=== PATIENT | female | born 1995 | race Caucasian/White ===

== ENCOUNTER 2017-02-11 17:23 | Inpatient (IN) | payer MEDICAID ==
[~2017-02-11] VITALS: Ht 157.5 cm; Wt 70.8 kg
--- OUTSIDE RECORDS SUMMARY | 2017-02-11 17:28 | XMS REPORT | Continuity of Care Document ---
Demographics Preferred Language Unknown Marital Status Unknown Jain Affiliation Unknown Race Unknown Ethnic Group Unknown Author Author [facility] Address Unknown Phone Unavailable Allergies There is no data. Medications There is no data. Problems Date Dx Coded Attending Type Code Diagnosis Diagnosed By 11/10/2009 558.9 GASTROENTERITIS NONINFECTIOUS 10/08/2010 V70.3 SPORTS/SCHOOL EXAM 11/02/2010 845.00 SPRAIN/ STRAIN ANKLE 05/21/2012 610.0 BREAST CYST 05/21/2012 788.1 DYSURIA 05/21/2012 V20.2 WELL CHILD Procedures Code [place] [address] UA LONG DIP 05/21/2012 23817 Audiogram (Screening) 05/23/2012 Results There is no data. Encounters ACCT No. Visit Date/Time Discharge Status Pt. Type Provider Facility Loc./Unit Complaint [id number] 05/21/2012 14:53:00 05/21/2012 23:59:59 CLS Outpatient [id number] 12/09/2012 19:39:00 12/09/2012 21:17:00 DIS Emergency
--- NOTE | 2017-02-11 18:55 | ED GU-Female ---
General Chief Complaint: -Female Stated Complaint: VAGINAL CYST Nursing Triage Note: PT PRESENTS TO ER WITH COMPLAINT OF VAGINAL CYST/ BUMP. STATES THAT SHE WENT TO [facility] ON Sunday02/09/17. SHE STATES THERE THEY RAN MULTIPLE TESTS AND GAVE HER AN ANTIBIOTIC. SHE IS UNAWARE OF WHAT ANTIBIOTIC SHE WAS GIVEN. ALSO STATES SHE IS HAVING WHITE VAGINAL DISCHARGE, BUT DOES NOT FEEL IT IS FROM THE CYST. Nursing Sepsis Screen: No Definite Risk Source: patient, family (sister), other (boyfriend) Exam Limitations: no limitations History of Present Illness Time seen by provider: 18:55 Initial Comments 22-year-old female patient presents to the emergency department with complaints of approximately 2 weeks onset left labial swelling and pain. Patient reports contacting her primary care provider at our medical clinic and was prescribed Diflucan. Patient reports seeing the walk-in clinic at [facility] on and given 1000 mg of azithromycin. Pap smear and vaginal cultures were obtained at that time. Patient states she was scheduled with Dr. Medina tomorrow as an outpatient. Patient reports increased swelling, pain, redness, and vaginal discharge today. Does complain of chills and sweats. She is unable to sit at this time. Timing/Duration: getting worse, other (2 weeks onset) Severity/Quality: severe Location: other (left labia) Activities at Onset: none Prior Genitourinary Problems: none Sexual [place] History: less than 2 months ago, single partner Modifying Factors: Worsens With Movement, Worsens With Palpation, Worsens With Other (worse with sitting) Allergies and Home Medications Allergies Coded Allergies: No Known Drug Allergies (Unverified , 02/11/17) Constitutional: chills, diaphoresis, No fever, malaise Respiratory: no symptoms reported Cardiovascular: no symptoms reported Gastrointestinal: No abdominal pain, No constipation, No diarrhea, No nausea, No vomiting Genitourinary: see HPI, discharge, denies dysuria, denies frequency, denies flank pain, denies hematuria, denies pain Musculoskeletal: No back pain Skin: see HPI, lumps (left labia) Psychiatric/Neurological: No Symptoms Reported All Other Systemes Reviewed Negative Unless Noted: Yes (Negative excepted noted.) Past Tyvtxbh-Emcxzi-Frtsyo Hx Patient Social History Alcohol Use: Denies Use Recreational Drug Use: No Smoking Status: Never a Smoker Recent Foreign Travel: No Contact w/Someone Who Travel: No Recent Infectious Disease Expo: No Recent Hopitalizations: No Physical Abuse: No Sexual Abuse: No Seasonal Allergies Seasonal Allergies: No Surgeries History of Surgeries: No Respiratory History of Respiratory Disorde: No Cardiovascular History of Cardiac Disorders: No Neurological History of Neurological Disord: No Reproductive System Hx Reproductive Disorders: No Sexually Transmitted Disease: No HIV/AIDS: No Genitourinary History of Genitourinary Disor: No Gastrointestinal History of Gastrointestinal Di: No Musculoskeletal History of Musculoskeletal Dis: No Endocrine History of Endocrine Disorders: No HEENT History of HEENT Disorders: No Cancer History of Cancer: No Psychosocial History of Psychiatric Problem: No Suicide Risk Score: 0 Integumentary History of Skin or Integumenta: No Blood Transfusions History of Blood Disorders: No Adverse Reaction to a Blood Tr: No Reviewed Nursing Assessment Reviewed/Agree w Nursing PMH: Yes Family Medical History Significant Family History: No Pertinent Family Hx Physical Exam Vital Signs Vital Sign - Last 12Hours 02/11/17 18:16 Temp 100.0 Pulse 110 Resp 20 B/P (MAP) 126/80 (95) Pulse Ox 98 O2 Delivery Room Air Capillary Refill : Less Than 3 Seconds General Appearance: WD/WN, no apparent distress HEENT: PERRL/EOMI, pharynx normal Neck: supple, normal inspection Cardiovascular: normal peripheral pulses, regular rate, rhythm, no murmur Respiratory: lungs clear, normal breath sounds, no respiratory distress, no accessory muscle use Gastrointestinal: normal bowel sounds, non tender, soft, no organomegaly, No distended Pelvic: other (left labia swollen (approximately the size of a nectarine), erythematous, tenderness with 2 areas of ecchymosis. patient unable to tolerate formal pelvic exam due to pain.) Back: normal inspection, no CVA tenderness Extremities: no pedal edema, normal capillary refill Neurologic/Psychiatric: alert, normal mood/affect, oriented x 3 Skin: normal color, warm/dry, other (left labia swollen (approximately the size of a nectarine), erythematous, tenderness with 2 areas of ecchymosis. ) Focused Exam Evaluation Sepsis Stage: Sepsis Possible Source: Genitouriary Lactate Level Laboratory Tests 02/11/17 19:30: Lactic Acid Level 1.25 Time of Focused Exam: 19:30 Respiratory: Lungs Clear, Normal Breath Sounds, No Accessory Muscle Use, No Respiratory Distress Cardiovascular: Regular Rate, Rhythm, No Murmur, Normal Peripheral Pulses Capillary Refill: Less Than 3 Seconds Peripheral Pulses: 2+ Dorsalis Pedis (R), 2+ Left Dors-Pedis (L), 2+ Radial Pulses (R), 2+ Radial Pulses (L) Skin: normal color, warm/dry, No rash, No ulcerations, other (left labia swollen (approximately the size of a nectarine), erythematous, tenderness with 2 areas of ecchymosis. ) Lactic Acid Level Progress/Results/Core Measures Suspected Sepsis Recent Fever Within 48 Hours: No Infection Criteria Present: None New/Unexplained Altered Menta: No Sepsis Screen: No Definite Risk Sepsis Diagnosis: SIRS Temperature:98.0 Pulse: 110 Respiratory Rate: 20 Laboratory Tests 02/11/17 19:30: White Blood Count 13.6H Blood Pressure 126 /80 Mean: 95 Laboratory Tests 02/11/17 19:30: Lactic Acid Level 1.25 Laboratory Tests 02/11/17 19:30: Creatinine 0.82, Platelet Count 363, Total Bilirubin 0.3 02/11/17 20:36: INR Comment 1.1 Results/Orders Lab Results Laboratory Tests Test 02/11/17 19:30 02/11/17 20:36 02/11/17 20:44 Range/Units White Blood Count 13.6 H 4.3-11.0 10^3/uL Red Blood Count 4.71 4.35-5.85 10^6/uL Hemoglobin 14.4 11.5-16.0 G/DL Hematocrit 42 35-52 % Mean Corpuscular Volume 89 80-99 FL Mean Corpuscular Hemoglobin 31 25-34 PG Mean Corpuscular Hemoglobin Concent 34 32-36 G/DL Red Cell Distribution Width 11.5 10.0-14.5 % Platelet Count 363 130-400 10^3/uL Mean Platelet Volume 9.0 7.4-10.4 FL Neutrophils (%) (Auto) 77 H 42-75 % Lymphocytes (%) (Auto) 15 12-44 % Monocytes (%) (Auto) 8 0-12 % Eosinophils (%) (Auto) 0 0-10 % Basophils (%) (Auto) 0 0-10 % Neutrophils # (Auto) 10.5 H 1.8-7.8 X 10^3 Lymphocytes # (Auto) 2.0 1.0-4.0 X 10^3 Monocytes # (Auto) 1.0 0.0-1.0 X 10^3 Eosinophils # (Auto) 0.0 0.0-0.3 10^3/uL Basophils # (Auto) 0.0 0.0-0.1 10^3/uL Sodium Level 142 135-145 MMOL/L Potassium Level 3.5 L 3.6-5.0 MMOL/L Chloride Level 102 98-107 MMOL/L Carbon Dioxide Level 26 21-32 MMOL/L Anion Gap 14 5-14 MMOL/L Blood Urea Nitrogen 9 7-18 MG/DL Creatinine 0.82 0.60-1.30 MG/DL Estimat Glomerular Filtration Rate > 60 BUN/Creatinine Ratio 11 Glucose Level 92 70-105 MG/DL Lactic Acid Level 1.25 0.50-2.00 MMOL/L Calcium Level 10.0 8.5-10.1 MG/DL Total Bilirubin 0.3 0.1-1.0 MG/DL Aspartate Amino Transf (AST/SGOT) 11 5-34 U/L Alanine Aminotransferase (ALT/SGPT) 13 0-55 U/L Alkaline Phosphatase 90 40-136 U/L C-Reactive Protein High Sensitivity 3.08 H 0.00-0.50 MG/DL Total Protein 8.3 H 6.4-8.2 GM/DL Albumin 4.2 3.2-4.5 GM/DL Prothrombin Time 14.5 12.2-14.7 SEC INR Comment 1.1 0.8-1.4 Activated Partial Thromboplast Time 27 24-35 SEC Urine Color YELLOW Urine Clarity SLIGHTLY CLOUDY Urine pH 7 5-9 Urine Specific [place] 1.010 L 1.016-1.022 Urine Protein NEGATIVE NEGATIVE Urine Glucose (UA) NEGATIVE NEGATIVE Urine Ketones NEGATIVE NEGATIVE Urine Nitrite NEGATIVE NEGATIVE Urine Bilirubin NEGATIVE NEGATIVE Urine Urobilinogen NORMAL NORMAL MG/DL Urine Leukocyte Esterase 1+ H NEGATIVE Urine RBC (Auto) 1+ H NEGATIVE Urine RBC NONE /HPF Urine WBC 2-5 /HPF Urine Squamous Epithelial Cells >50 H /HPF Urine Crystals NONE /LPF Urine Bacteria FEW H /HPF Urine Casts NONE /LPF Urine Mucus NEGATIVE /LPF Urine Culture Indicated NO My Orders Orders - ISELA RUSSO Morphine Injection (Morphine Injection (02/11/17 19:07) Cbc With Automated Diff (02/11/17 19:16) Comprehensive Metabolic Panel (02/11/17 19:16) Hs C Reactive Protein (02/11/17 19:16) Lactic Acid Analyzer (02/11/17 19:16) Saline Lock/Iv-Start (02/11/17 19:16) Morphine Injection (Morphine Injection (02/11/17 19:16) Ns Iv 1000 Ml (Sodium Chloride 0.9%) (02/11/17 19:16) Blood Culture (02/11/17 20:06) Wound Culture (02/11/17 20:06) Protime With Inr (02/11/17 20:15) Partial Thromboplastin Time (02/11/17 20:15) Levofloxacin 750 Mg/150 Ml Iv (Levaquin (02/11/17 20:15) Vital Signs Adult Sepsis Patie Q1H (02/11/17 20:15) Remove Rings In Anticipation O (02/11/17 20:15) Ketorolac Injection (Toradol Injection) (02/11/17 20:15) Ns Iv 1000 Ml (Sodium Chloride 0.9%) (02/11/17 20:15) Ua Culture If Indicated (02/11/17 20:24) Urine Bedside (02/11/17 20:37) Medications Given in ED Current Medications Medications Dose Ordered Sig/Afsaneh Route Start Time Stop Time Status Last Admin Dose Admin Levofloxacin/ Dextrose 750 mg ONCE ONCE IV 02/11/17 20:15 02/11/17 20:17 DC 02/11/17 20:26 750 MG Sodium Chloride 1,000 ml @ 0 mls/hr Q0M ONCE IV 02/11/17 19:16 02/11/17 19:18 DC 02/11/17 19:41 1,000 MLS/HR Sodium Chloride 1,000 ml @ 0 mls/hr Q0M ONCE IV 02/11/17 20:15 02/11/17 20:17 DC 02/11/17 20:25 1,000 MLS/HR Vital Signs/I&O Vital Sign - Last 12Hours 02/11/17 02/11/17 02/11/17 18:16 22:42 23:42 Temp 100.0 99.0 97.0 Pulse 110 100 95 Resp 20 20 18 B/P (MAP) 126/80 (95) 119/66 (83) Pulse Ox 98 99 99 O2 Delivery Room Air Room Air Room Air Intake and Output 02/12/17 00:00 Intake Total 1000 ml Balance 1000 ml Capillary Refill : Less Than 3 Seconds Blood Pressure Mean: 95 Departure Communication (Admissions) Time/Spoke to Admitting Phy: 20:[address] ordoñez graciously accepts patient to his [facility] service for IV antibiotics and IVF. Progress Notes patient noted to have a WBC count of 13.6 with a temp of 100.0 which meets criteria for sepsis with known infection of the left labia. all laboratory findings and plan for admission discussed with the patient. Patient verbalizes understanding and agrees with plan for admit. Impression Impression: Primary Impression: Sepsis Qualified Codes: A41.9 - Sepsis, unspecified organism Additional Impression: Left genital labial abscess Disposition: ADMITTED INPATIENT Condition: Stable Admissions Decision to Admit Reason: Admit from ER (General) Decision to Admit/Date: Feb 11, 2017 Time/Decision to Admit Time: 20:25 Departure-Patient Inst. Referrals: [facility] [place] Primary Care Physician Scripts No Active Prescriptions or Reported Meds ISELA RUSSO Feb 11, 2017 18:55
[2017-02-11] MEDS ORDERED: morphine INJ 10 MG/ML 1ML (SYR OR VIAL) IM STA (19:07)
[2017-02-11] MEDS ORDERED: morphine INJ 10 MG/ML 1ML (SYR OR VIAL) IVP STA (19:16)
[2017-02-11] MEDS ORDERED: NS IV 1000 ML 1,000 ML IV ONE ×2 (19:16→20:15)
[2017-02-11 19:44] LABS: BASOPHILS % (AUTO) 0 % (0-10); EOSINOPHILS % (AUTO) 0 % (0-10); LYMPHOCYTES % (AUTO) 15 % (12-44); MEAN CORPUSCULAR HEMOGLOBIN 31 PG (25-34); MEAN CORPUSCULAR HGB CONC 34 G/DL (32-36); MEAN CORPUSCULAR VOLUME 89 FL (80-99); MONOCYTES % (AUTO) 8 % (0-12); NEUTROPHILS # (AUTO) 10.5 X 10^3 (1.8-7.8); NEUTROPHILS % (AUTO) 77 % (42-75); PLATELET COUNT 363 10^3/uL (130-400); RED BLOOD COUNT 4.71 10^6/uL (4.35-5.85); RED CELL DISTRIBUTION WIDTH 11.5 % (10.0-14.5); WHITE BLOOD COUNT 13.6 10^3/uL (4.3-11.0)
[2017-02-11 20:07] LABS: ALANINE AMINOTRANSFERASE 13 U/L (0-55); ALBUMIN 4.2 GM/DL (3.2-4.5); ANION GAP 14 MMOL/L (5-14); ASPARTATE AMINO TRANSFERASE 11 U/L (5-34); BILIRUBIN,TOTAL 0.3 MG/DL (0.1-1.0); BLOOD UREA NITROGEN 9 MG/DL (7-18); BUN/CREATININE RATIO 11; CARBON DIOXIDE 26 MMOL/L (21-32); CHLORIDE 102 MMOL/L (98-107); CREATININE SERUM 0.82 MG/DL (0.60-1.30); GFR ESTIMATED > 60; GLUCOSE 92 MG/DL (70-105); POTASSIUM 3.5 MMOL/L (3.6-5.0); SODIUM 142 MMOL/L (135-145); TOTAL PROTEIN 8.3 GM/DL (6.4-8.2); hs C REACTIVE PROTEIN 3.08 MG/DL (0.00-0.50)
[2017-02-11] MEDS ORDERED: LEVOFLOXACIN IV 750 MG/150 ML (LEVAQUIN) BAG IV ONE (20:15)
[2017-02-11] MEDS ORDERED: KETOROLAC 30 MG/ML VIAL IVP STA (20:15)
[2017-02-11 20:53] LABS: INR 1.1 (0.8-1.4); PROTHROMBIN TIME PATIENT 14.5 SEC (12.2-14.7)
[2017-02-11 20:53] LABS: BILIRUBIN,URINE NEGATIVE (NEGATIVE); KETONES,URINE NEGATIVE (NEGATIVE); LEUKOCYTE ESTERASE ,URINE 1+ (NEGATIVE); NITRITE,URINE NEGATIVE (NEGATIVE); PH,URINE 7 (5-9); PROTEIN,URINE NEGATIVE (NEGATIVE); UROBILINOGEN,URINE NORMAL (NORMAL)
[2017-02-11 20:59] LABS: SQUAMOUS EPITHELIAL CELL,UR >50 /HPF
--- OUTSIDE RECORDS SUMMARY | 2017-02-11 22:02 | XMS REPORT | Continuity of Care Document ---
Demographics Preferred Language Unknown Marital Status Unknown Sikh Affiliation Unknown Race Unknown Ethnic Group Unknown Author Author [facility] Address Unknown Phone Unavailable Allergies There is no data. Medications There is no data. Problems Date Dx Coded Attending Type Code Diagnosis Diagnosed By 11/10/2009 558.9 GASTROENTERITIS NONINFECTIOUS 10/08/2010 V70.3 SPORTS/SCHOOL EXAM 11/02/2010 845.00 SPRAIN/ STRAIN ANKLE 05/21/2012 610.0 BREAST CYST 05/21/2012 788.1 DYSURIA 05/21/2012 V20.2 WELL CHILD Procedures Code Description [place] [address] UA LONG DIP 05/21/2012 97006 Audiogram (Screening) 05/23/2012 Results There is no data. Encounters ACCT No. Visit Date/Time Discharge Status Pt. Type Provider Facility Loc./Unit Complaint [id number] 05/21/2012 14:53:00 05/21/2012 23:59:59 CLS Outpatient [id number] 12/09/2012 19:39:00 12/09/2012 21:17:00 DIS Emergency
[2017-02-11] MEDS ORDERED: morphine INJ 4 MG/ML 1 ML (VIAL/SYRINGE) IVP PRN (22:45)
[2017-02-11] MEDS ORDERED: ACETAMINOPHEN 500 MG TAB (TYLENOL) PO PRN (22:45)
[2017-02-11] MEDS ORDERED: metroNIDAZOLE 500MG/100ML IVPB 100 ML ONE (23:03)
[2017-02-11] MEDS ORDERED: NS IV 1000 ML 1,000 ML ONE (23:03)
[2017-02-11] MEDS: metroNIDAZOLE 500MG/100ML IVPB 100 ML IV SCH (23:12)
[2017-02-11] MEDS: NS IV 1000 ML 1,000 ML IV SCH (23:12)
[2017-02-11 23:42] VITALS: BP 119/66
[2017-02-12 04:05] VITALS: BP 115/69
[2017-02-12] MEDS: KETOROLAC 30 MG/ML VIAL IVP PRN ×3 (04:05→20:36)
[2017-02-12] MEDS: NS IV 1000 ML 1,000 ML IV SCH (04:08)
[2017-02-12 06:11] LABS: BASOPHILS % (AUTO) 0 % (0-10); EOSINOPHILS # (AUTO) 0.1 10^3/uL (0.0-0.3); EOSINOPHILS % (AUTO) 1 % (0-10); LYMPHOCYTES # (AUTO) 2.3 X 10^3 (1.0-4.0); LYMPHOCYTES % (AUTO) 20 % (12-44); MEAN CORPUSCULAR HEMOGLOBIN 31 PG (25-34); MEAN CORPUSCULAR HGB CONC 34 G/DL (32-36); MEAN CORPUSCULAR VOLUME 92 FL (80-99); MEAN PLATELET VOLUME 8.9 FL (7.4-10.4); MONOCYTES # (AUTO) 1.2 X 10^3 (0.0-1.0); MONOCYTES % (AUTO) 10 % (0-12); NEUTROPHILS % (AUTO) 69 % (42-75); PLATELET COUNT 285 10^3/uL (130-400); RED BLOOD COUNT 3.62 10^6/uL (4.35-5.85); RED CELL DISTRIBUTION WIDTH 11.5 % (10.0-14.5); WHITE BLOOD COUNT 11.6 10^3/uL (4.3-11.0)
[2017-02-12 06:28] LABS: ALANINE AMINOTRANSFERASE 11 U/L (0-55); ALBUMIN 2.9 GM/DL (3.2-4.5); ANION GAP 6 MMOL/L (5-14); ASPARTATE AMINO TRANSFERASE 9 U/L (5-34); BILIRUBIN,TOTAL 0.2 MG/DL (0.1-1.0); BLOOD UREA NITROGEN 11 MG/DL (7-18); BUN/CREATININE RATIO 15; CARBON DIOXIDE 23 MMOL/L (21-32); CHLORIDE 112 MMOL/L (98-107); CREATININE SERUM 0.72 MG/DL (0.60-1.30); GFR ESTIMATED > 60; GLUCOSE 121 MG/DL (70-105); POTASSIUM 3.9 MMOL/L (3.6-5.0); SODIUM 141 MMOL/L (135-145); TOTAL PROTEIN 5.6 GM/DL (6.4-8.2); hs C REACTIVE PROTEIN 1.92 MG/DL (0.00-0.50)
[2017-02-12] MEDS ORDERED: D5 LR IV SOLUTION 1,000 ML IV ONE (08:07)
[2017-02-12 08:10] VITALS: BP 124/74
[2017-02-12] MEDS: metroNIDAZOLE 500MG/100ML IVPB 100 ML IV SCH ×2 (08:16→18:47)
[2017-02-12] MEDS: D5 LR IV SOLUTION 1,000 ML IV SCH ×2 (08:17→20:33)
--- NOTE | 2017-02-12 08:31 | History & Physical-OB/GYN ---
History of Present Illness History of Present Illness Reason for visit/HPI Left labial abscess. This patient reports having left labial swelling which has gotten substantially worse in the past 2-3 days. Sought care at [facility] where she was given, azithromycin and tested for STDs. She tried treatment with antifungal without any improvement and began running temp, and pain became much worse so she present to the ER. Date of Admission Feb 11, 2017 at 20:45 Date Seen by Provider: Feb 12, 2017 Time Seen by Provider: 08:15 I consulted on this patient on 02/12/17 08:25 Attending Physician Everton Weinberg DO Admitting Physician No,Local Physician Consult Allergies and Home Medications Allergies Coded Allergies: No Known Drug Allergies (Unverified , 02/11/17) Past Rvgayoe-Ppjzlr-Ofbyyp Hx Patient Social History Marrital Status: single Number of Children: 0 Number of living children: 0 Alcohol Use: Denies Use Recreational Drug Use: No Smoking Status: Never a Smoker Physical Abuse Screen: No Sexual Abuse: No Recent Foreign Travel: No Contact w/other who traveled: No Recent Hopitalizations: No Recent Infectious Disease Expo: No Seasonal Allergies Seasonal Allergies: No Surgeries No Respiratory No Cardiovascular No Neurological No Reproductive System Hx Reproductive Disorders: No Sexually Transmitted Disease: No HIV/AIDS: No Genitourinary No Gastrointestinal No Musculoskeletal No Endocrine History of Endocrine Disorders: No HEENT History of HEENT Disorders: No Cancer No Psychosocial History of Psychiatric Problem: No Integumentary History of Skin or Integumenta: No Blood Transfusions History of Blood Disorders: No Adverse Reaction to a Blood Tr: No Reviewed Nursing Assessment Reviewed/Agree w Nursing PMH: Yes Family Medical History Significant Family History: No Pertinent Family Hx Constitutional: see HPI EENTM: see HPI Respiratory: see HPI Cardiovascular: see HPI Gastrointestinal: see HPI Genitourinary: see HPI : No Musculoskeletal: see HPI Skin: see HPI Psychiatric/Neurological: See HPI All Other Systems Reviewed Negative Unless Noted: Yes Physical Exam Physical Exam Vital Signs Vital Signs Date Time Temp Pulse Resp B/P (MAP) Pulse Ox O2 Delivery O2 Flow Rate FiO2 02/12/17 04:05 98.0 77 17 115/69 (84) 100 Room Air 02/11/17 23:42 97.0 95 18 119/66 (83) 99 Room Air 02/11/17 22:42 99.0 100 20 99 Room Air 02/11/17 18:16 100.0 110 20 126/80 (95) 98 Room Air I & O 02/12/17 07:00 Intake Total 3150 ml Balance 3150 ml Capillary Refill : Less Than 3 Seconds Labs Laboratory Tests 02/11/17 19:30: White Blood Count 13.6H, Red Blood Count 4.71, Hemoglobin 14.4, Hematocrit 42, Mean Corpuscular Volume 89, Mean Corpuscular Hemoglobin 31, Mean Corpuscular Hemoglobin Concent 34, Red Cell Distribution Width 11.5, Platelet Count 363, Mean Platelet Volume 9.0, Neutrophils (%) (Auto) 77H, Lymphocytes (%) (Auto) 15 , Monocytes (%) (Auto) 8, Eosinophils (%) (Auto) 0, Basophils (%) (Auto) 0, Neutrophils # (Auto) 10.5H, Lymphocytes # (Auto) 2.0, Monocytes # (Auto) 1.0, Eosinophils # (Auto) 0.0, Basophils # (Auto) 0.0, Sodium Level 142, Potassium Level 3.5L, Chloride Level 102, Carbon Dioxide Level 26, Anion Gap 14, Blood Urea Nitrogen 9, Creatinine 0.82, Estimat Glomerular Filtration Rate > 60, BUN/ Creatinine Ratio 11, Glucose Level 92, Lactic Acid Level 1.25, Calcium Level 10.0, Total Bilirubin 0.3, Aspartate Amino Transf (AST/SGOT) 11, Alanine Aminotransferase (ALT/SGPT) 13, Alkaline Phosphatase 90, C-Reactive Protein High Sensitivity 3.08H, Total Protein 8.3H, Albumin 4.2 02/11/17 20:36: Prothrombin Time 14.5, INR Comment 1.1, Activated Partial Thromboplast Time 27 02/11/17 20:44: Urine Color YELLOW, Urine Clarity SLIGHTLY CLOUDY, Urine pH 7, Urine Specific [place] 1.010L, Urine Protein NEGATIVE, Urine Glucose (UA) NEGATIVE, Urine Ketones NEGATIVE, Urine Nitrite NEGATIVE, Urine Bilirubin NEGATIVE, Urine Urobilinogen NORMAL, Urine Leukocyte Esterase 1+H, Urine RBC (Auto) 1+H, Urine RBC NONE, Urine WBC 2-5, Urine Squamous Epithelial Cells >50H, Urine Crystals NONE, Urine Bacteria FEWH, Urine Casts NONE, Urine Mucus NEGATIVE, Urine Culture Indicated NO 02/12/17 06:02: White Blood Count 11.6H, Red Blood Count 3.62L, Hemoglobin 11.2#L, Hematocrit 33L, Mean Corpuscular Volume 92, Mean Corpuscular Hemoglobin 31, Mean Corpuscular Hemoglobin Concent 34, Red Cell Distribution Width 11.5, Platelet Count 285, Mean Platelet Volume 8.9, Neutrophils (%) (Auto) 69, Lymphocytes (%) (Auto) 20, Monocytes (%) (Auto) 10, Eosinophils (%) (Auto) 1, Basophils (%) ( Auto) 0, Neutrophils # (Auto) 8.0H, Lymphocytes # (Auto) 2.3, Monocytes # (Auto ) 1.2H, Eosinophils # (Auto) 0.1, Basophils # (Auto) 0.0, Sodium Level 141, Potassium Level 3.9, Chloride Level 112#H, Carbon Dioxide Level 23, Anion Gap 6 , Blood Urea Nitrogen 11, Creatinine 0.72, Estimat Glomerular Filtration Rate > 60, BUN/Creatinine Ratio 15, Glucose Level 121H, Lactic Acid Level 0.77, Calcium Level 8.0L, Total Bilirubin 0.2, Aspartate Amino Transf (AST/SGOT) 9, Alanine Aminotransferase (ALT/SGPT) 11, Alkaline Phosphatase 68, C-Reactive Protein High Sensitivity 1.92H, Total Protein 5.6L, Albumin 2.9L General Appearance: Anxious, Mild Distress Respiratory: Lungs Clear Cardiovascular: Regular Rate, Rhythm Abdominal: normal bowel sounds Gynecology/General: Other (3x4 cm labial lesion, there is an area of erythema limited to the abscess, no surrounding evidence of cellulitis) Labia: Left, Abscess Labia Mass: soft, tender Pelvic Exam: deferred (could not tolerate) Assessment/Plan Assessment and Plan Diagnosis: 22 yo G0 with Left labial abscess Failed conservative treatment P: Plan of care discussed with the patient I and D of left labial abscess, I discussed with her the details of the procedure, and possibility of postoperative packing and wound care as well as prolonged course of antibiotics. Problems: Admission Diagnosis 22 yo G0 with Left labial abscess Failed conservative treatment Clinical Quality Measures DVT/VTE Risk/Contraindication: Risk Factor Score Per Nursin RFS Level Per Nursing on Admit: 1=Low/No VTE PPX EVERTON WEINBERG DO Feb 12, 2017 08:31
[2017-02-12] MEDS: HYDROmorphone (DILAUDID) 2 MG/ML VIAL IVP PRN ×2 (08:48→18:47)
[2017-02-12] MEDS: FAMOTIDINE 20MG/2ML IV (PEPCID) IVP SCH ×2 (09:26→20:34)
[2017-02-12] MEDS: DOCUSATE SODIUM 100 MG (COLACE) CAP PO SCH ×2 (09:27→20:40)
[2017-02-12] MEDS ORDERED: INFLUENZA TRIvalent 2017-2018 0.5 ML/45 MCG SYR IM ONE (10:00)
[2017-02-12] MEDS: ONDANSETRON 4 MG/2 ML (SDV) Z0FRAN IVP PRN ×2 (10:28→15:08)
[2017-02-12 12:09] VITALS: BP 117/72
[2017-02-12] MEDS ORDERED: BUPIVACAINE 0.25% 30 ML (SENSORCAINE) VIAL ONE (12:10)
[2017-02-12] MEDS ORDERED: LACTATED RINGERS 1,000 ML IV ONE (12:11)
[2017-02-12] MEDS ORDERED: DEXAMETHASONE 10 MG/ML (DECADRON) 1 ML VIAL ONE (12:16)
[2017-02-12] MEDS ORDERED: SEVOFLURANE (ULTANE) 15 ML INHAL SOLN ONE ×3 (12:16→12:54)
[2017-02-12] MEDS ORDERED: MIDAZOLAM 2 MG/2 ML (VERSED) VIAL ONE (12:16)
[2017-02-12] MEDS ORDERED: LIDOCAINE PF 2% 5 ML (XYLOCAINE) VIAL ONE (12:16)
[2017-02-12] MEDS ORDERED: ONDANSETRON 4 MG/2 ML (SDV) Z0FRAN ONE (12:16)
[2017-02-12] MEDS ORDERED: fentaNYL INJECTION 100 MCG/2 ML AMP ONE ×2 (12:16→12:51)
[2017-02-12] MEDS ORDERED: proPOfol 200 MG/20 ML (DIPRIVAN) VIAL IV ONE (12:16)
[2017-02-12] MEDS ORDERED: GENTAMICIN 40 MG/ML 2 ML INJ SDV IR ONE (13:00)
[2017-02-12] MEDS ORDERED: BUPIVACAINE 0.25% 30 ML (SENSORCAINE) VIAL INJ ONE (13:00)
[2017-02-12] MEDS ORDERED: ONDANSETRON 4 MG/2 ML (SDV) Z0FRAN IVP PRN (13:15)
[2017-02-12] MEDS: morphine INJ 10 MG/ML 1ML (SYR OR VIAL) IVP PRN ×2 (13:32→13:39)
[2017-02-12 14:05] VITALS: BP 119/72
[2017-02-12 16:28] VITALS: BP 121/77
[2017-02-12] MEDS ORDERED: PROMETHAZINE INJ 25 MG/ML (PHENERGAN) AMP IVP PRN (18:45)
[2017-02-12] MEDS ORDERED: LEVOFLOXACIN 750 MG/150 ML IV 150 ML IV SCH (20:00)
--- NOTE | 2017-02-12 20:15 | OPERATIVE REPORT ---
DATE OF SERVICE: PREOPERATIVE DIAGNOSIS: 22-year-old female with left labial abscess. POSTOPERATIVE DIAGNOSIS: 22-year-old female with left labial abscess. PROCEDURE: Incision and drainage of left labial abscess. SURGEON: Dr. Juan José Magallon. ANESTHESIA: LMA. ESTIMATED BLOOD LOSS: Minimal. URINE OUTPUT: 500 mL drained by indwelling catheter placement at the end of the procedure. FLUIDS: 4000 mL lactate Ringer's solution. FINDINGS: A purulent exudate filled abscess of the left labia approximately 5 to 6 cm in length from front to back and approximately 3 to 4 cm wide. The dorsal margin of this extends all the way to the edge of the buttocks. The ventral margin stops just proximal to the anterior fourchette. There are two openings evident upon prep and there is a copious amount of purulent exudate expressed. SPECIMEN SENT: Abscess cultures. INDICATIONS FOR PROCEDURE: This 22-year-old female was admitted from the Emergency Department last night with a low grade temperature as well as a mildly elevated white count of 14. She reported dealing with this area on her vulva for the past two to three weeks, underwent 1000 mg of azithromycin treatment for possible STD at [facility] as well as attempted several trials of over the counter antifungals all without resolution and actually worsening of her symptoms. This morning, upon evaluation, the vulva is as described in my findings above. I discussed with the patient conservative management has failed. At this point, we will proceed with operative incision and drainage. The procedure was detailed with the patient including risk and risk of anesthesia. After all of her questions were answered, consent is obtained. The patient was taken to the operating room. OPERATIVE REPORT IN DETAIL: Once in the operating room, LMA anesthesia was found to be adequate. She was placed in the dorsal lithotomy position, prepped and draped in normal sterile fashion. The more medial opening of the wound opens up and begins draining upon prepping the patient, I go ahead and incised the margins of the necrotic area of this opening and resected using Metzenbaum scissors. There is another necrotic area on the surface of the skin that is incised as well. At first, I am suspicious that this is a separate pocket of fluid and abscess; however, upon opening, it is connecting and there is a fenestration of the labia. I clear out all extent of the abscess exploring all extent of the abscess and proceeded with copiously irrigating the abscess defect using gentamicin 80 mg in 1000 mL of normal saline. Approximately 800 mL of saline of this concentration is used to irrigate, after which there was no active bleeding noted from any my dissection planes. I then packed the defect using quarter inch iodoform. Tails were left out of both incisional openings. A Underwood catheter is placed. The patient tolerated the procedure well, sent to recovery area in stable condition 750mg of Levaquin, 500 mg of Flagyl are being given to the patient since admission, she has received one dose of Levaquin and three doses of Flagyl at this point. Job ID: [id number] DocumentID: [id number] Dictated Date: 02/12/2017 13:18:13 Family Medicine Chair Date: 02/12/2017 20:15:04 Dictated By: DO JESSICA AMOR
[2017-02-12 20:40] VITALS: BP 96/55
[2017-02-13 00:48] VITALS: BP 95/53
[2017-02-13] MEDS: HYDROcodone/APAP 5 MG/325 MG (LORTAB) TAB PO PRN ×2 (00:48→04:58)
[2017-02-13] MEDS: KETOROLAC 30 MG/ML VIAL IVP PRN (02:41)
[2017-02-13] MEDS: metroNIDAZOLE 500MG/100ML IVPB 100 ML IV SCH (02:41)
[2017-02-13 04:58] VITALS: BP 107/63
[2017-02-13] MEDS: D5 LR IV SOLUTION 1,000 ML IV SCH (06:56)
[2017-02-13 08:00] VITALS: BP 100/61
[2017-02-13] MEDS ORDERED: DOCU-143 PO (08:28)
[2017-02-13] MEDS ORDERED: METR500T PO (08:28)
[2017-02-13] MEDS ORDERED: IBUP-1773 PO (08:28)
[2017-02-13] MEDS ORDERED: LEVO500T2 PO (08:28)
[2017-02-13] MEDS ORDERED: HYDR-757 PO (08:28)
--- NOTE | 2017-02-13 08:29 | Discharge Inst-Women's Service ---
Discharge Inst-Women's Serv Depart Medication/Instructions New, Converted or Re-Newed RX: RX on Chart Consults/Follow Up Additional Follow Up: Yes Orders/Referrals DR. Magallon on Activity Activity: Activity as Tolerated Driving Instructions: No Driving for 1 Week NO SMOKING: NO SMOKING Nothing Inside Vagina: No Douching, No [place], No Tampons Diet Discharge Diet: No Restrictions Symptoms to Report to : Bleeding Excessive, Pain Increased, Fever Over 101 Degrees F, Vaginal Bleeding Increase, Questions/Concerns For Any Problems or Questions: Contact Your Physician Skin/Wound Care Infection Signs and Symptoms: Increased Redness, Increased Swelling, Temperature Above 101 F Bathing Instructions: EVERTON Oneill DO Feb 13, 2017 08:29
[2017-02-13] MEDS ORDERED: IBUPROFEN 600 MG (MOTRIN) TAB PO PRN (08:30)
--- NOTE | 2017-02-13 08:32 | Progress Note-Standard ---
Standard Progress Note Progress Notes/Assess & Plan Date Seen by Provider: Feb 13, 2017 Time Seen by Provider: 08:30 Progress/Assessment & Plan Patient reports feeling much better yesterday afternoon, and this AM. Reports expected discomfort, but is now ambulating and voiding freely since catheter was removed. Vital Sign - Last 24 Hours 02/12/17 02/12/17 02/12/17 02/12/17 12:09 14:05 16:28 20:40 Temp 98.3 98.1 97.9 97.7 Pulse 79 82 77 81 Resp 18 18 18 18 B/P (MAP) 117/72 (87) 119/72 (88) 121/77 (92) 96/55 (69) Pulse Ox 100 100 100 97 O2 Delivery Room Air Room Air Room Air Room Air 02/13/17 02/13/17 00:48 04:58 Temp 97.2 97.5 Pulse 85 71 Resp 18 B/P (MAP) 95/53 (67) 107/63 (78) Pulse Ox 99 99 O2 Delivery Room Air Room Air Intake and Output 02/12/17 02/12/17 02/13/17 15:00 23:00 07:00 Intake Total 1300 ml 1300 ml Output Total 560 ml 1350 ml 1300 ml Balance 740 ml -1350 ml 0 ml Packing out of wound with bloody discharge noted. Erythema and swelling has significantly gone down Diagnosis: POD 1 I and D labial abscess P: DC today with 10 antibiotic course of levaquin and flagyl Follow up in my office on for packing change Precautions given to patient SULTANAEVERTON Alex ZAVALA Feb 13, 2017 08:32
[2017-02-13] MEDS ORDERED: INFLUENZA TRIvalent 2017-2018 0.5 ML/45 MCG SYR IM ONE (08:44)
[2017-02-13] MEDS: DOCUSATE SODIUM 100 MG (COLACE) CAP PO SCH (08:50)
== END 2017-02-13 09:20 | disposition home or self-care (01) | DRG 747 ==
LOC: EDUNIT# 17:23 → ER 17:25 → WS 20:45
PROVIDERS: ADMIT Obstetrics & Gynecology; ATTEND Obstetrics & Gynecology
PROC: 0H99XZX Drainage of Perineum Skin, External Approach, Diagnostic (ICD-10-PCS; 2017-02-12)
PROC: 0U9MXZX Drainage of Vulva, External Approach, Diagnostic (ICD-10-PCS; principal; 2017-02-12 12:28)
DX: N76.4 Abscess of vulva (principal); Z23 Encounter for immunization
CPT/HCPCS: 36415; 80053; 81000; 83605; 84703; 85025; 85610; 85730; 86141; 87040; 87070; 87075; 87077; 87081; 87186; 87205; 96361; 96374; 96375

== ENCOUNTER 2019-09-10 06:36 | Day surgery (SDC) | payer MEDICAID ==
[~2019-09-10] VITALS: Ht 160 cm; Wt 61.4 kg
[2019-09-10] VITALS (10 sets, daily range): BP systolic 107–115; BP diastolic 65–76
[~2019-09-10 06:36] MED LIST: DOCU-143 PO; HYDR-4226 PO; IBUP-1773 PO; LEVO500T2 PO; METR500T PO
--- OUTSIDE RECORDS SUMMARY | 2019-09-10 06:39 | XMS REPORT ---
Author Author Larissa COVARRUBIAS [facility] Address [address] [place] [address] Care Team Providers Care High Pressure Kettle Operator Name Role Phone KELSEA COVARRUBIAS Unavailable PROBLEMS Type Condition ICD9-CM Code EIQ70-UA Code Onset Dates Condition S tatus SNOMED Code Problem Swelling of labia N94.89 Active 28 1137727 Problem Solitary cyst of breast 610.0 Active 672908174 Problem Dysuria 788.1 Active 24425292 Problem Routine infant or child health check V20.2 Active [id number] ALLERGIES No Known Allergies ENCOUNTERS Encounter Location Date Diagnosis [facility] [id number] [place] [phone] Jan, [facility] [id number] [place] [phone] Jan, Pelvic pain R10.2 ; Dysuria R30.0 and Swelling of labia N94.89 [facility] [place] [id number] [place] [phone] Apr, [place] [id number] [place] [phone] Sep, [place] [id number] [place] [phone] Oct, IMMUNIZATIONS Vaccine Route Administration Date Status ROCEPHIN 1 GM (IM) IM Intramuscular Feb 09, 2017 Administered SOCIAL HISTORY Never Assessed REASON FOR VISIT pt had a yeast infection a week ago according to pt...symptoms are getting worse . vaginal itching, vaginal burning, white vaginal discharge, dysuria. all been g oing on for a week. kbednarhans, last menstural period was 3 weeks ago. wants STD testing., rocephin given at 1055. pt to waiting room and will wait 15 minutes. if no s/s of distress or reaction ...pt will be discharged. report given to toby garcia rn. PLAN OF CARE Activity Details Follow Up 1 Week Reason: VITAL SIGNS Height 63.75 in 2017-02-09 Weight 156.6 lbs 2017-02-09 Temperature 98.0 degrees Fahrenheit 2017-02-09 Heart Rate 80 bpm 2017-02-09 Respiratory Rate 20 2017-02-09 BMI 27.09 kg/m2 2017-02-09 Blood pressure systolic 104 mmHg 2017-02-09 Blood pressure diastolic 68 mmHg 2017-02-09 MEDICATIONS Medication Instructions Dosage Frequency Start Date End Date Duration S tatus Azithromycin 500 MG Orally once 2 tablets Jan,Jan, 017 1 days Active RESULTS No Results PROCEDURES Procedure Date Ordered Result Body Site No Charge Feb 09, 2017 [facility] Feb 09, 2017 THER/PROPH/DIAG INJ, SC/IM Feb 09, 2017 URINALYSIS, AUTO, W/O SCOPE Feb 09, 2017 Bacterial Vaginosis In House Feb 09, 2017 ROCEPHIN 1 GM (IM) Feb 09, 2017 INSTRUCTIONS MEDICATIONS ADMINISTERED No Known Medications
--- OUTSIDE RECORDS SUMMARY | 2019-09-10 06:40 | XMS REPORT ---
Author Author Larissa COVARRUBIAS Organization [facility] Address [address] [place] [address] Care Team Providers Care Director Stars Name Role Phone KELSEA COVARRUBIAS Unavailable PROBLEMS Type Condition ICD9-CM Code OJR09-VP Code Onset Dates Condition S tatus SNOMED Code Problem Swelling of labia N94.89 Active 28 4563489 Problem Solitary cyst of breast 610.0 Active 440295535 Problem Dysuria 788.1 Active 56681630 Problem Routine infant or child health check V20.2 Active 770162828 ALLERGIES No Information ENCOUNTERS Encounter Location Date Diagnosis [facility] [id number] [place] [phone] Jan, [facility] [id number] [place] [phone] Jan, Pelvic pain R10.2 ; Dysuria R30.0 and Swelling of labia N94.89 [facility] [id number] [place] [phone] Apr, [facility] [id number] [place] [phone] Sep, [facility] [id number] [place] [phone] 15 Oct, 2009 IMMUNIZATIONS No Known Immunizations SOCIAL HISTORY Never Assessed REASON FOR VISIT PLAN OF CARE VITAL SIGNS MEDICATIONS Unknown Medications RESULTS No Results PROCEDURES No Known procedures INSTRUCTIONS MEDICATIONS ADMINISTERED No Known Medications
--- OUTSIDE RECORDS SUMMARY | 2019-09-10 06:40 | XMS REPORT | Continuity of Care Document ---
Author Organization Unknown Address Unknown Phone Unavailable Allergies Active Description Code Type Severity Reaction Onset Reported/Identified Relationship to Patient Clinical Status Yes No Known Drug Allergies [id number] Drug Allergy Unknown N/A 02/11/2017 Medications There is no data. Problems Date Dx Coded Attending Type Code Diagnosis Diagnosed By 11/10/2009 558.9 BRICE ROENTERITIS NONINFECTIOUS 10/08/2010 V70.3 SPOR TS/SCHOOL EXAM 11/02/2010 845.00 SPR AIN/STRAIN ANKLE 05/21/[address] CYST 05/21/2012 788.1 DYSURIA 05/21/2012 V20.2 WELL CHILD 12/09/2012 TERESA RAYGOZA MD Ot 850.0 CONCUSSION W/O COMA 12/09/2012 TERESA RAYGOZA MD Ot 959.01 HEAD INJURY, NOS 12/09/2012 TERESA RAYGOZA MD Ot E000.8 OTHER EXTERNAL CAUSE STATUS 12/09/2012 TERESA RAYGOZA MD Ot E007.7 ACTIVITIES INVOLVING VOLLEYBALL (BEACH) 12/09/2012 TERESA RAYGOZA MD Ot E849.4 ACCID IN RECREATION AREA 12/09/2012 TERESA RAYGOZA MD Ot E886.0 FALL IN SPORTS 02/13/2017 EVERTON WEINBERG DO Ot N76.4 ABSCESS OF VULVA 02/13/2017 EVERTON WEINBERG DO Ot Z2 3 ENCOUNTER FOR IMMUNIZATION Procedures Code [place] [address] UA L INGA DIP 05/21/2012 67204 Frank ogram (Screening) 05/23/[id number] BEACH OF PERINEUM SKIN, EXTERNAL APPR 02/12/[id number] [place]ACH OF VULVA, EXTERNAL APPROACH, DI 02/12/2017 Results Test Result Range CULTURE, GENITAL - 02/09/17 10:40 CULTURE, GENITAL SEE NOTE NRG Complete blood count (CBC) with automate d white blood cell (WBC) differential - 02/11/17 19:30 Blood leukocytes automated count (number/volume) 13.6 10*3/uL 4.3-11.0 Blood erythrocytes automated count (number/volume) 4.71 10*6/uL 4.35-5.85 Venous blood hemoglobin measurement (mass/volume) 14.4 g/dL 11.5-16.0 Blood hematocrit (volume fraction) 42 % 35-52 Automated erythrocyte mean corpuscular volume 89 [ foz_us] 80-99 Automated erythrocyte mean corpuscular h emoglobin (mass per erythrocyte) 31 pg 25-34 Automated erythrocyte mean corpuscular h emoglobin concentration measurement (mass/volume) 34 g/dL 32-36 Automated erythrocyte distribution width ratio 11. 5 % 10.0- 14.5 Automated blood platelet count (count/volume) 363 10*3/uL 130-400 Automated blood platelet mean volume measurement 9.0 [foz_us] 7.4-10.4 Automated blood neutrophils/100 leukocytes 77 % 42-75 Automated blood lymphocytes/100 leukocytes 15 % 12-44 Blood monocytes/100 leukocytes 8 % 0-12 Automated blood eosinophils/100 leukocytes 0 % 0-10 Automated blood basophils/100 leukocytes 0 % 0-10 Blood neutrophils automated count (number/volume) 10.5 10*3 1.8-7.8 Blood lymphocytes automated count (number/volume) 2.0 10*3 1.0-4.0 Blood monocytes automated count (number/volume) 1. 0 10*3 0.0-1.0 Automated eosinophil count 0.0 10*3/uL 0 .0-0.3 Automated blood basophil count (count/volume) 0.0 10*3/uL 0.0-0.1 Blood lactic acid measurement (moles/vol ume) - 02/11/17 19:30 Blood lactic acid measurement (moles/volume) 1.25 mmol/L 0.50-2.00 Comprehensive metabolic panel - 02/11/17 19:30 Serum or plasma sodium measurement (moles/volume) 142 mmol/L 135-145 Serum or plasma potassium measurement (moles/volume) 3.5 mmol/L 3.6-5.0 Serum or plasma chloride measurement (moles/volume) 102 mmol/L 98-107 Carbon dioxide 26 mmol/L 21-32 Serum or plasma anion gap determination (moles/volume) 14 mmol/L 5-14 Serum or plasma urea nitrogen measurement (mass/volume ) 9 mg/dL 7-18 Serum or plasma creatinine measurement (mass/volume) 0.82 mg/dL 0.60-1.30 Serum or plasma urea nitrogen/creatinine mass ratio 11 NRG Serum or plasma creatinine measurement w ith calculation of estimated glomerular filtration rate > NRG Serum or plasma glucose measurement (mass/volume) 92 mg/dL 70-105 Serum or plasma calcium measurement (mass/volume) 10.0 mg/dL 8.5-10.1 Serum or plasma total bilirubin measurement (mass/volu me) 0.3 mg/dL 0.1-1.0 Serum or plasma alkaline phosphatase ginny surement (enzymatic activity/volume) 90 U/L 40-136 Serum or plasma aspartate aminotransfera se measurement (enzymatic activity/volume) 11 U/L 5-34 Serum or plasma alanine aminotransferase measurement (enzymatic activity/volume) 13 U/L 0-55 Serum or plasma protein measurement (mass/volume) 8.3 g/dL 6.4-8.2 Serum or plasma albumin measurement (mass/volume) 4.2 g/dL 3.2-4.5 Serum or plasma C reactive protein measu rement (mass/volume) - 02/11/17 19:30 Serum or plasma C reactive protein measurement (mass/v olume) 3.08 mg/dL 0.00-0.50 Bacterial blood culture - 02/11/17 19:30 Bacterial blood culture NG NR Gram stain microscopy - 02/11/17 20:11 GRAM STAIN RESULT NO WBC'S NRG Bacteria identification in wound by cult ure - 02/11/17 20:11 Bacteria identification in wound by culture [id number] NR FREE TEXT EXTERNAL SENSITIVITY REPORTED 02/14 15:1 0 NRG QUANTITY OF GROWTH Scant Growth NRG Bacterial susceptibility panel - 7 20:11 Gentamicin susceptibility test by minimum inhibitory c oncentration S NRG Erythromycin susceptibility test by minimum inhibitory concentration >= NRG Vancomycin susceptibility test by minimum inhibitory c oncentration 1 NRG Ampicillin susceptibility test by minimum inhibitory c oncentration <= NRG Linezolid susceptibility test by minimum inhibitory co ncentration 1 NRG PT panel in platelet poor plasma by coag ulation assay - 02/11/17 20:36 Prothrombin time (PT) in platelet poor plasma by coagu lation assay 14.5 s 12.2-14.7 INR in platelet poor plasma or blood by coagulation as say 1.1 0.8-1.4 Activated partial thromboplastin time (a PTT) in platelet poor plasma bycoagulation assay - 02/11/17 20:36 Activated partial thromboplastin time (a PTT) in platelet poor plasma bycoagulation assay 27 s 24-35 Bacterial blood culture - 02/11/17 20:36 Bacterial blood culture NG NRG Complete urinalysis with reflex to cultu re - 02/11/17 20:44 Urine color determination YELLOW NRG Urine clarity determination SLIGHTLY CLOUDY NRG Urine pH measurement by test strip 7 5-9 Specific gravity of urine by test strip 1.010 1.016-1.022 Urine protein assay by test strip, semi-quantitative NEGATIVE NEGATIVE Urine glucose detection by automated test strip NE GATIVE NEGATIVE Erythrocytes detection in urine sediment by light micr oscopy 1+ NEGATIVE Urine ketones detection by automated test strip NE GATIVE NEGATIVE Urine nitrite detection by test strip NEGATIVE NEGATIVE Urine total bilirubin detection by test strip NEGA TIVE NEGATIVE Urine urobilinogen measurement by automated test strip (mass/volume) NORMAL NORMAL Urine leukocyte esterase detection by dipstick 1+ NEGATIVE Automated urine sediment erythrocyte cou nt by microscopy (number/high power field) NONE NRG Automated urine sediment leukocyte count by microscopy (number/high power field) [HPF] NRG Bacteria detection in urine sediment by light microsco py FEW NRG Squamous epithelial cells detection in u rine sediment by light microscopy >50 NRG Crystals detection in urine sediment by light microsco py NONE NRG Casts detection in urine sediment by light microscopy NONE NRG Mucus detection in urine sediment by light microscopy NEGATIVE NRG Complete urinalysis with reflex to culture NO NRG Complete blood count (CBC) with automate d white blood cell (WBC) differential - 02/12/17 06:02 Blood leukocytes automated count (number/volume) 11.6 10*3/uL 4.3-11.0 Blood erythrocytes automated count (number/volume) 3.62 10*6/uL 4.35-5.85 Venous blood hemoglobin measurement (mass/volume) 11.2 g/dL 11.5-16.0 Blood hematocrit (volume fraction) 33 % 35-52 Automated erythrocyte mean corpuscular volume 92 [ foz_us] 80-99 Automated erythrocyte mean corpuscular h emoglobin (mass per erythrocyte) 31 pg 25-34 Automated erythrocyte mean corpuscular h emoglobin concentration measurement (mass/volume) 34 g/dL 32-36 Automated erythrocyte distribution width ratio 11. 5 % 10.0- 14.5 Automated blood platelet count (count/volume) 285 10*3/uL 130-400 Automated blood platelet mean volume measurement 8.9 [foz_us] 7.4-10.4 Automated blood neutrophils/100 leukocytes 69 % 42-75 Automated blood lymphocytes/100 leukocytes 20 % 12-44 Blood monocytes/100 leukocytes 10 % 0-12 Automated blood eosinophils/100 leukocytes 1 % 0-10 Automated blood basophils/100 leukocytes 0 % 0-10 Blood neutrophils automated count (number/volume) 8.0 10*3 1.8-7.8 Blood lymphocytes automated count (number/volume) 2.3 10*3 1.0-4.0 Blood monocytes automated count (number/volume) 1. 2 10*3 0.0-1.0 Automated eosinophil count 0.1 10*3/uL 0 .0-0.3 Automated blood basophil count (count/volume) 0.0 10*3/uL 0.0-0.1 Blood lactic acid measurement (moles/vol ume) - 02/12/17 06:02 Blood lactic acid measurement (moles/volume) 0.77 mmol/L 0.50-2.00 Comprehensive metabolic panel - 02/12/17 06:02 Serum or plasma sodium measurement (moles/volume) 141 mmol/L 135-145 Serum or plasma potassium measurement (moles/volume) 3.9 mmol/L 3.6-5.0 Serum or plasma chloride measurement (moles/volume) 112 mmol/L 98-107 Carbon dioxide 23 mmol/L 21-32 Serum or plasma anion gap determination (moles/volume) 6 mmol/L 5-14 Serum or plasma urea nitrogen measurement (mass/volume ) 11 mg/dL 7-18 Serum or plasma creatinine measurement (mass/volume) 0.72 mg/dL 0.60-1.30 Serum or plasma urea nitrogen/creatinine mass ratio 15 NRG Serum or plasma creatinine measurement w ith calculation of estimated glomerular filtration rate > NRG Serum or plasma glucose measurement (mass/volume) 121 mg/dL 70-105 Serum or plasma calcium measurement (mass/volume) 8.0 mg/dL 8.5-10.1 Serum or plasma total bilirubin measurement (mass/volu me) 0.2 mg/dL 0.1-1.0 Serum or plasma alkaline phosphatase ginny surement (enzymatic activity/volume) 68 U/L 40-136 Serum or plasma aspartate aminotransfera se measurement (enzymatic activity/volume) 9 U/L 5-34 Serum or plasma alanine aminotransferase measurement (enzymatic activity/volume) 11 U/L 0-55 Serum or plasma protein measurement (mass/volume) 5.6 g/dL 6.4-8.2 Serum or plasma albumin measurement (mass/volume) 2.9 g/dL 3.2-4.5 Serum or plasma C reactive protein measu rement (mass/volume) - 02/12/17 06:02 Serum or plasma C reactive protein measurement (mass/v olume) 1.92 mg/dL 0.00-0.50 Methicillin resistant Staphylococcus aur eus (MRSA) screening culture - 02/12/17 08:30 Methicillin resistant Staphylococcus aureus (MRSA) scr eening culture NEG NRG Bacteria identification in isolate by an aerobe culture - 02/12/17 12:42 Bacteria identification in isolate by anaerobe culture NOANA NRG Gram stain microscopy - 02/12/17 12:42 GRAM STAIN RESULT FEW GRAM POSITIVE COCCI NRG Bacteria identification in wound by cult ure - 02/12/17 12:42 Bacteria identification in wound by culture [id number] NRG QUANTITY OF GROWTH Scant Growth NRG GC/CHLAMYDIA (SWAB OR URINE)-RAPID - 14:23 CHLAMYDIA TRACHOMATIS RNA, TMA NOT DETECTED NOT DETECTED NEISSERIA GONORRHOEAE RNA, TMA NOT DETECTED NOT DETECTED COMMENT NRG CULTURE, GENITAL - 09/13/18 14:23 CULTURE, GENITAL SEE NOTE NRG Encounters ACCT No. Visit Date/Time Discharge Status Pt. Type Provider Facility Loc./Unit Complaint [id number] 09/05/2019 14:45:00 09/05/2019 23:59:5 9 CLS [id number] 09/13/2018 13:20:00 Document Registration [id number] 02/09/2017 10:15:00 Document Registration [id number] 01/15/2018 17:44:02 ACT Unknown [id number] 02/11/2017 20:45:00 017 09:20:00 DIS Inpatient EVERTON WEINBERG DO [facility] WS SEPSIS,LABIAL ABSCESS [id number] 12/09/2012 19:39:00 013 21:17:00 DIS Emergency TERESA RAYGOZA MD [facility] ER VOLLEYBALL INJ TO HEAD [id number] 09/10/2019 06:36:[address] Outpatient EVERTON WEINBERG DO [facility] SDC RIGHT LABIAL ABSCESS [id number] 05/21/2012 14:53:00 05/21/2012 23:59: 59 CLS Outpatient
--- OUTSIDE RECORDS SUMMARY | 2019-09-10 06:40 | XMS REPORT | Continuity of Care Document ---
Author Author [facility] Organization [facility] Address Unknown Phone Unavailable Care Team Providers Care Pressurization Mechanic Name Role Phone [facility] OF Insurance Providers Payer Name Policy Number Subscriber Name Relationship Medicaid [place] [id number] Larissa Hsieh 01 Self / Same As Patient Advance Directives Directive Response Recor ded Date Advance Directives N 7:45pm Health Care Power of Pneumatic Tester Mechanic N 12/09/12 7:45pm Organ Donor Y 12/09/12 7 :45pm Problems No Known Problems or Medical conditions. Social History History Response Recorde d Date/Time Alcohol Use Denies Use 1 7:45pm Recreational Drug Use N 12/09/12 7:45pm Sexually Transmitted Disease N 12/09/12 7:45pm HIV/AIDS N 12/09/12 7:45 pm Allergies, Adverse Reactions, Alerts Allergen Type Severity Reaction Last Updated No Known Drug Allergies 05/01/11 Medications Medication Dose Units Route Sig Qty Days No Active Prescriptions or Reported Medications Response Recorded Date/Time Status not known Unknown Results No Known Relevant Diagnostic Tests, Laboratory Data and/or Discharge Summary. Encounters Encounter Location Date/ Time Registered Emergency Room [facility] 12/09/12 7:39pm Departed Emergency Room [facility] 05/01/11 10:14pm
[2019-09-10 07:05] LABS: BASOPHILS % (AUTO) 0 % (0-10); EOSINOPHILS % (AUTO) 0 % (0-10); HEMATOCRIT 42 % (35-52); HEMOGLOBIN 14.7 G/DL (11.5-16.0); LYMPHOCYTES # (AUTO) 1.6 X 10^3 (1.0-4.0); LYMPHOCYTES % (AUTO) 13 % (12-44); MEAN CORPUSCULAR HEMOGLOBIN 32 PG (25-34); MEAN CORPUSCULAR HGB CONC 35 G/DL (32-36); MEAN CORPUSCULAR VOLUME 90 FL (80-99); MEAN PLATELET VOLUME 9.4 FL (7.4-10.4); MONOCYTES # (AUTO) 1.3 X 10^3 (0.0-1.0); MONOCYTES % (AUTO) 11 % (0-12); NEUTROPHILS # (AUTO) 9.4 X 10^3 (1.8-7.8); NEUTROPHILS % (AUTO) 76 % (42-75); PLATELET COUNT 306 10^3/uL (130-400); RED CELL DISTRIBUTION WIDTH 12.2 % (10.0-14.5); WHITE BLOOD COUNT 12.3 10^3/uL (4.3-11.0)
[2019-09-10] MEDS ORDERED: D5 LR IV SOLUTION 1,000 ML IV SCH (07:09)
[2019-09-10] MEDS ORDERED: HYDR-4226 PO (07:12)
--- NOTE | 2019-09-10 07:13 | Discharge Inst-Women's Service ---
Discharge Inst-Women's Serv Depart Medication/Instructions New, Converted or Re-Newed RX: RX on Chart Problems Reviewed?: Yes Consults/Follow Up Additional Follow Up: Yes Orders/Referrals Dr. Weinberg in 7-10 days Activity Activity: Activity as Tolerated Driving Instructions: You May Drive NO SMOKING: NO SMOKING Nothing Inside Vagina: No Douching, No [place], No Tampons Diet Discharge Diet: No Restrictions Symptoms to Report to : Bleeding Excessive, Pain Increased, Fever Over 101 Degrees F, Vaginal Bleeding Increase, Questions/Concerns For Any Problems or Questions: Contact Your Physician EVERTON WEINBERG DO Sep 10, 2019 07:13
[2019-09-10] MEDS ORDERED: ONDANSETRON 4 MG/2 ML (SDV) Z0FRAN IVP PRN ×2 (07:15→09:00)
[2019-09-10] MEDS ORDERED: KETOROLAC 30 MG/ML VIAL IVP ONE (07:15)
[2019-09-10] MEDS ORDERED: LEVOFLOXACIN 500 MG/100 ML IV 100 ML IV ONE (07:30)
[2019-09-10] MEDS ORDERED: LACTATED RINGERS 1,000 ML IV PRN (07:38)
[2019-09-10] MEDS ORDERED: LEVOFLOXACIN 500 MG/100 ML IV 100 ML ONE (07:47)
[2019-09-10] MEDS ORDERED: fentaNYL INJECTION 100 MCG/2 ML AMP ONE (07:50)
[2019-09-10] MEDS ORDERED: ONDANSETRON 4 MG/2 ML (SDV) Z0FRAN ONE ×2 (07:50→08:46)
[2019-09-10] MEDS ORDERED: LIDOCAINE PF 2% 5 ML (XYLOCAINE) VIAL ONE (07:50)
[2019-09-10] MEDS ORDERED: proPOfol 200 MG/20 ML (DIPRIVAN) VIAL IV ONE (07:50)
[2019-09-10] MEDS ORDERED: MIDAZOLAM 2 MG/2 ML (VERSED) VIAL ONE (07:50)
[2019-09-10] MEDS ORDERED: DEXAMETHASONE 10 MG/ML (DECADRON) 1 ML VIAL ONE (07:50)
[2019-09-10] MEDS ORDERED: SEVOFLURANE (ULTANE) 15 ML INHAL SOLN ONE (07:51)
[2019-09-10] MEDS ORDERED: BUP/EPI 0.5% 1:200,000 (SENSORCAINE) 30 ML VIAL ONE (08:13)
[2019-09-10] MEDS ORDERED: MEPERIDINE (DEMEROL) INJ 50 MG/ML ONE (08:39)
--- NOTE | 2019-09-10 08:48 | Anesthesia-General Post-Op ---
General Patient Condition Mental Status/LOC: Same as Preop Cardiovascular: Satisfactory Nausea/Vomiting: Absent Respiratory: Satisfactory Pain: Controlled Complications: Absent Post Op Complications Complications None Follow Up Care/Instructions Patient Instructions None needed. Anesthesia/Patient Condition Patient Condition Patient is doing well, no complaints, stable vital signs, no apparent adverse anesthesia problems. No complications reported per nursing. YRN LEA CRNA Sep 10, 2019 08:48
[2019-09-10] MEDS ORDERED: MEPERIDINE (DEMEROL) INJ 50 MG/ML IVP ONE (09:00)
[2019-09-10] MEDS ORDERED: morphine INJ 10 MG/ML 1ML (SYR OR VIAL) IVP ONE (09:00)
--- NOTE | 2019-09-10 09:16 | OPERATIVE REPORT ---
DATE OF SERVICE: PREOPERATIVE DIAGNOSIS: Right labial abscess. POSTOPERATIVE DIAGNOSIS: Right labial abscess. PROCEDURE PERFORMED: Incision and drainage of right labial abscess. SURGEON: Everton Weinberg DO. ANESTHESIA: LMA general. ESTIMATED BLOOD LOSS: Minimal. URINE OUTPUT: 50 mL, clear and drained at the end of procedure. FLUIDS: 750 mL lactated Ringer's solution. FINDINGS: An enlarged right labial with an abscess pocket that was identified and purulent exudate expressed from the pocket. Otherwise, grossly normal external female genitalia. SPECIMEN SENT: Culture of the abscess pocket. INDICATIONS FOR PROCEDURE: This 24-year-old female is a patient, who had come to my office with an acute onset of right labial swelling. She was seen at [facility] last week and was started on Bactrim antibiotics for the entire week. This did not improve her symptoms and in fact they significantly got worse in the past day. She was either heading to the emergency room; however, I had her come into my office instead of going to the emergency room. In the office,. I identified what appeared to be a labial abscess. The patient was admitted to shaving of the genitalia, likely the cause of this abscess formation. She had this occurred in the past. I discussed with the patient incision and drainage of this area due to an abscess formation approximately 1 cm in depth and approximately 3 cm to 4 cm in length from anterior to posterior. Risks of procedure were discussed with the patient in detail. After all of her questions were answered, consent was obtained and the patient was taken to the operating room. OPERATIVE REPORT IN DETAIL: Once in the operating room, anesthesia was found to be adequate. She was placed in the dorsal lithotomy position, prepped and draped in normal sterile fashion. A timeout was performed. I identified the margin of the abscess on the mucocutaneous junction of the right labia, at which point, I made a stab incision and extended this approximately 1 cm to 1.5 cm in length. The purulent exudate was expressed from this pocket and anaerobic cultures were taken from this pocket. I then expressed everything up that came out of this pocket and copiously irrigated the pocket using a normal saline, after which I packed the abscess pocket using quarter inch iodoform gauze. There was no active bleeding noted from the incision plane at that point. The patient tolerated the procedure well and sent to recovery in stable condition. Lap and sponge counts were correct at the end of the procedure. Instrument count was correct as well. A 500 mg of Levaquin were given intraoperatively for infection prophylaxis and the patient was sent home on a 7-day course of oral 500 mg daily Levaquin and will follow up in my office in 2 to 3 days for repacking of the abscess. Job ID: [id number] DocumentID: [id number] Dictated Date: 09/10/2019 08:48:28 Documentation Billing Clerk Date: 09/10/2019 09:16:32 Dictated By: EVERTON WEINBERG DO
[2019-09-10] MEDS ORDERED: KETOROLAC 30 MG/ML VIAL ONE (09:40)
== END 2019-09-10 10:53 | disposition home or self-care (01) ==
LOC: SDC 06:36
PROVIDERS: ATTEND Obstetrics & Gynecology
DX: N76.4 Abscess of vulva (principal); N75.0 Cyst of Bartholin's gland; E66.9 Obesity, unspecified; Z68.24 Body mass index [BMI] 24.0-24.9, adult; Z79.899 Other long term (current) drug therapy
CPT/HCPCS: 36415; 84703; 85025; 86850; 86900; 86901; 87070; 87075; 87076; 87081; 87205; 87635